=== PATIENT | male | born 1980 | race Caucasian/White ===

== ENCOUNTER 2025-05-20 15:56 | Emergency (ER) | payer BC, SELFPAY ==
--- NOTE | 2025-05-20 16:04 | ED.WOUNDLAC ---
HPI - Wound/Laceration General Chief Complaint: Wound/Laceration Stated Complaint: fishing hook stuck in rt arm Time Seen by Provider: 05/20/25 16:20 Source: patient and RN notes reviewed Mode of arrival: ambulatory Limitations: no limitations History of Present Illness HPI narrative: 45-year-old male presents with concern for a fishing hook in his right forearm. He reports it happened just prior to arrival. He denies any decreased strength, sensation range of motion in the extremity. He is not up-to-date on his tetanus vaccination. Related Data Home Medications ?Medication ?Instructions ?Recorded ?Confirmed ?Last Taken ?Type No Home Medications 05/20/25 05/20/25 Unknown History Allergies Allergy/AdvReac Type Severity Reaction Status Date / Time No Known Allergies Allergy Verified 05/20/25 16:12 Review of Systems Review of Systems: CONSTITUTIONAL: Denies malaise, chills, sweats, or fever. SKIN: Reports foreign body in the right forearm MUSCULOSKELETAL: Denies muscle skeletal pain NEUROLOGIC: Denies numbness, weakness All systems reviewed & are unremarkable except as noted in HPI and below PMFSH Past Medical History Medical History (Updated 05/20/25 @ 16:44 by Kayla Ojeda NP) Skin candidiasis Plantar wart of right foot Lipid screening Adult general medical exam Fracture of clavicular shaft, right, closed Shingles Surgical History Surgical History (Updated 11/06/22 @ 16:04 by Deb Rosa MD) History of open reduction and internal fixation (ORIF) procedure R distal clavicle fracture Family History Family History Father Hypertension Family history of elevated blood lipids Grandparent Family history of coronary artery disease Social History Social History (Updated 11/06/22 @ 20:52 by Deb Rosa MD) Social History: Smoking status: Never smoker Second hand tobacco smoke exposure: No Alcohol intake: never Substance use: never Substance use type: does not use Lack of Transportation: No Lack of Food: Never True Current Housing: I Have Housing Concerned About Future Housing: No Difficulty Paying Gas/Electric Bills: No Difficulty Paying for Meds: No Currently Unemployed: No Education: Master's Degree or Higher Difficulty w/ Childcare or Family Care: No Living arrangements: with family Occupation/Education: occupation Gender identity (if verbalized by the patient): Male Sexual Orientation (if Verbalized by the Patient): Straight or Heterosexual Spiritual care concerns: No Agree to blood products: Yes Comments At time of signature, agree with nursing past medical, surgical, social and family history. There is no relevant family history pertinent to the presenting complaint Exam Narrative: GENERAL: Well-appearing, well-nourished, and in no acute distress. HEAD: Normocephalic, atraumatic. EYES: PERRLA, conjunctivae clear ENT: Mucous membranes moist. NECK: Supple. No lymphadenopathy CHEST: Clear to auscultation. No respiratory distress. HEART: Regular rate and rhythm. SKIN: Warm, dry. [place] noted the right forearm NEURO: Alert and oriented x3. PSYCH: Normal mood and affect Course Course Emergency Course: Patient is aware of diagnosis, understands and agrees to treatment plan. Anticipatory guidance given. Patient agrees to follow-up as directed and is aware of reasons to seek care at the emergency department. Portions of this record may have been created with voice recognition software Level of Care: [facility] Visit Vital Signs Vital signs: Reviewed. Procedures Foreign Body Removal Foreign Body #1: Foreign Body Removal Date: 05/20/25 Foreign Body Removal Time: 16:20 Time Out Performed: no Site: right Description of foreign body: fish hook Sedation/Analgesia: other (Lidocaine) Technique: removal with forceps and incision made to facilitate removal Confirmed by:: direct visualization Complications: none Post-procedure exam: awake, alert Neurovascular: normal distal pulse, normal capillary fill, distal light touch sensation intact, distal motor function normal, no signs of compartment syndrome and no change from pre-procedure MDM - Wound/Laceration MDM Narrative Medical decision making narrative: I evaluated this patient in the [facility] care. History is obtained from patient who is an independent historian and physical exam was performed.? Available medical records were reviewed. ? Exam findings and relevant testing show no acute concerns or changes; patient is non-toxic appearing and is in no distress. ? Differential diagnosis and treatment plan were discussed with the patient. Patient agrees with discussion and after shared medical decision making agrees with plan of care. All questions were answered to the patient's satisfaction. Patient is appropriate for outpatient treatment and follow-up. Differential Diagnosis Differential diagnosis: Likely laceration, abrasion and avulsion of skin Critical Care Time Critical Care Time Critical Care Time: No Discharge Plan Discharge Clinical Impression: Fish hook in forearm Patient Disposition: Home Condition: Stable Instructions: Soft Tissue Foreign Body (ED) Additional Instructions: Washer room with soap and water twice daily, cover with a bandage until it is healed. Watch for signs of infection such as redness, warmth, swelling, drainage. If you notice any of these symptoms you should be evaluated. Please follow-up with your primary care doctor as needed. Patient Language: [place] Prescriptions: No Action No Home Medications Follow-up/Referrals: PHYSICIAN,ABRASIVE WORKER [Primary Care Provider, Internal Medicine] Time of Disposition: 16:44
[2025-05-20 16:15] VITALS: BP 132/82; PULSE 66; RESP 16; TEMP 36.2; O2SAT 99
[2025-05-20] MEDS: TETANUS,DIPHTHERIA,AC PERTUSSIS ADULT (0.5 ML) BOOSTRIX IM (16:23)
== END 2025-05-20 16:50 | disposition home or self-care (01) ==
PROVIDERS: Emergency Provider Nurse Practitioner
DX: S51.841A Puncture wound with foreign body of right forearm, initial encounter (principal); W26.8XXA Contact with other sharp object(s), not elsewhere classified, initial encounter; Z23 Encounter for immunization
CPT/HCPCS: 10120; 90471; 90715; 99212; G0463; J2003